=== PATIENT | female | born 1955 | race African-American/Black ===

== ENCOUNTER 2021-07-07 10:15 | Outpatient (CLI) | payer MEDICARE, OTHER | END 2021-07-07 10:16 | disposition home or self-care (01) | LOC: CSHMAMMO 10:15 | PROVIDERS: ATTEND Internal Medicine | DX: Z12.31 Encounter for screening mammogram for malignant neoplasm of breast (principal); Z13.820 Encounter for screening for osteoporosis; Z78.0 Asymptomatic menopausal state; Z80.3 Family history of malignant neoplasm of breast; M85.852 Other specified disorders of bone density and structure, left thigh; M85.851 Other specified disorders of bone density and structure, right thigh | CPT/HCPCS: 77063; 77067; 77080 ==

== ENCOUNTER 2022-03-25 13:44 | Emergency (ER) | payer MEDICARE, OTHER ==
[2022-03-25 14:35] LABS: #Monocytes 0.7 10x3/uL (0.0-1.1); #Neutrophils 3.2 10x3/uL (1.5-8.4); %Basophils 0.6 % (0.0-2.0); %Eosinophils 0.6 % (0.0-6.0); %Monocytes 14.8 % (0.0-10.0); %Neutrophils 63.2 % (40.0-75.0); Mean Corpuscular HGB CONC 33.6 g/dL (32.0-36.0); Mean Corpuscular Hemoglobin 32.6 pg (27.0-33.0); Mean Platelet Volume 11.4 fl (7.4-10.4); Platelet Count 146 10x3/uL (150-450); RBC Distribution Width 12.7 % (11.5-14.5); Red Blood Cell (RBC) Count 3.99 10x6/uL (3.90-5.03)
[2022-03-25 14:50] LABS: ALT (SGPT) 43 U/L (8-55); AST (SGOT) 47 U/L (5-34); Albumin 3.9 g/dL (3.4-4.8); Alkaline Phosphatase 101 U/L (40-110); Anion Gap 12 mmol/L (10-20); BUN (Urea Nitrogen) 25 mg/dL (9.8-20.1); Bilirubin, Total 0.3 mg/dL (0.2-1.2); Calc. Creatinine Clearance 0 mL/min (70-130); Calcium 8.8 mg/dL (7.8-10.44); Carbon Dioxide 25 mmol/L (23-31); Chloride 97 mmol/L (98-107); Estimated GFR 41; Globulin 3.1 g/dL (2.4-3.5); Glucose 111 mg/dL (80-115); Sodium 129 mmol/L (136-145)
== END 2022-03-25 17:40 | disposition home or self-care (01) ==
LOC: CSHERS 13:44
DX: S09.90XA Unspecified injury of head, initial encounter (principal); M25.529 Pain in unspecified elbow; I10 Essential (primary) hypertension; W18.30XA Fall on same level, unspecified, initial encounter
CPT/HCPCS: 70450; 72125; 80053; 85025; 93005; 96360; 96361

== ENCOUNTER 2022-11-24 09:12 | Outpatient (CLI) | payer MEDICARE, OTHER | END 2022-11-24 09:13 | disposition home or self-care (01) | LOC: CSHMAMMO 09:12 | PROVIDERS: ATTEND Internal Medicine | DX: Z12.31 Encounter for screening mammogram for malignant neoplasm of breast (principal); Z80.3 Family history of malignant neoplasm of breast | CPT/HCPCS: 77063; 77067 ==

== ENCOUNTER 2023-04-09 08:52 | Inpatient (IN) | payer MEDICARE, OTHER ==
[2023-04-09 09:43] LABS: #Eosinphils 0.1 10x3/uL (0.0-0.5); #Monocytes 0.6 10x3/uL (0.0-1.1); #Neutrophils 2.2 10x3/uL (1.5-8.4); %Basophils 0.7 % (0.0-2.0); %Eosinophils 2.6 % (0.0-6.0); %Lymphocytes 30.6 % (18.0-47.0); %Monocytes 14.2 % (0.0-10.0); %Neutrophils 51.7 % (40.0-75.0); Hematocrit 34.3 % (34.9-44.5); Hemoglobin 11.7 g/dL (12.0-15.5); Mean Corpuscular HGB CONC 34.1 g/dL (32.0-36.0); Mean Corpuscular Hemoglobin 33.7 pg (27.0-33.0); Mean Corpuscular Volume 98.8 fl (81.6-98.3); Mean Platelet Volume 11.3 fl (7.4-10.4); Platelet Count 195 10x3/uL (150-450); RBC Distribution Width 12.6 % (11.5-14.5); Red Blood Cell (RBC) Count 3.47 10x6/uL (3.90-5.03); White Blood Cell (WBC) Count 4.3 10x3/uL (3.5-10.5)
[2023-04-09 09:54] LABS: INR-International Normal Ratio 1.2; PTT 28.5 sec (22.0-33.0); Prothrombin Time 12.8 sec (9.5-12.1)
[2023-04-09 09:59] LABS: Anion Gap 16 mmol/L (10-20); BUN (Urea Nitrogen) 17 mg/dL (9.8-20.1); Calc. Creatinine Clearance 0 mL/min (70-130); Calcium 8.2 mg/dL (7.8-10.44); Carbon Dioxide 17 mmol/L (23-31); Chloride 104 mmol/L (98-107); Estimated GFR 93; Glucose 76 mg/dL (80-115); Potassium 3.9 mmol/L (3.5-5.1); Sodium 133 mmol/L (136-145)
[2023-04-09 10:06] LABS: Troponin I Less than 0.010 ng/mL (< 0.028)
[2023-04-09] MEDS ORDERED: Ondansetron ODT 4 MG TAB PO PRN (12:34)
[2023-04-09] MEDS ORDERED: Ondansetron PF 4 MG/2 ML Vial IVP PRN (12:34)
[2023-04-09 15:23] LABS: Magnesium 2.1 mg/dL (1.6-2.6)
[2023-04-09 19:18] VITALS: BMI 21.6
[2023-04-09] MEDS: Nicotine 14 MG PATCH TD SCH (21:23)
[2023-04-10] MEDS: Acetaminophen 325 MG TAB PO PRN ×3 (03:23→21:01)
[2023-04-10 04:38] LABS: Amphetamine Not Detected (NotDetected); Barbiturates Screen Not Detected (NotDetected); Benzodiazepine Screen Not Detected (NotDetected); Cocaine Metabolite Screen Not Detected (NotDetected); Methadone Not Detected (NotDetected); Methamphetamine Not Detected (NotDetected); Opiate Screen Not Detected (NotDetected); Oxycodone Screen Not Detected (NotDetected); Phencyclidine (PCP) Not Detected (NotDetected); THC/Cannabinoid Screen Detected (NotDetected); Tricyclic Screen Not Detected (NotDetected)
[2023-04-10 05:34] LABS: #Eosinphils 0.1 10x3/uL (0.0-0.5); #Monocytes 0.7 10x3/uL (0.0-1.1); #Neutrophils 3.7 10x3/uL (1.5-8.4); %Basophils 0.5 % (0.0-2.0); %Eosinophils 1.8 % (0.0-6.0); %Lymphocytes 30.4 % (18.0-47.0); %Monocytes 11.1 % (0.0-10.0); %Neutrophils 55.9 % (40.0-75.0); Hemoglobin 12.5 g/dL (12.0-15.5); Mean Corpuscular HGB CONC 33.8 g/dL (32.0-36.0); Mean Corpuscular Hemoglobin 33.3 pg (27.0-33.0); Mean Corpuscular Volume 98.7 fl (81.6-98.3); Mean Platelet Volume 11.3 fl (7.4-10.4); Platelet Count 208 10x3/uL (150-450); RBC Distribution Width 12.9 % (11.5-14.5); Red Blood Cell (RBC) Count 3.75 10x6/uL (3.90-5.03); White Blood Cell (WBC) Count 6.6 10x3/uL (3.5-10.5)
[2023-04-10 05:51] LABS: Anion Gap 13 mmol/L (10-20); BUN (Urea Nitrogen) 15 mg/dL (9.8-20.1); Calc. Creatinine Clearance 73 mL/min (70-130); Calcium 8.6 mg/dL (7.8-10.44); Carbon Dioxide 23 mmol/L (23-31); Chloride 103 mmol/L (98-107); Estimated GFR 96; Glucose 78 mg/dL (80-115); Potassium 4.4 mmol/L (3.5-5.1); Sodium 135 mmol/L (136-145)
[2023-04-10] MEDS ORDERED: OXYCODONE HCL PO SCH (14:06)
[2023-04-10] MEDS ORDERED: [UNRECOGNIZED DRUG - OTHER] PO SCH (14:06)
[2023-04-10] MEDS ORDERED: ACETAMINOPHEN PO SCH (14:06)
[2023-04-10] MEDS ORDERED: Nicotine 21 MG PATCH TD SCH (14:45)
[2023-04-10] MEDS: oxyCODONE 5 MG TAB PO SCH ×2 (16:17→22:16)
[2023-04-10] MEDS ORDERED: carBAMazepine 200 MG TAB PO SCH (21:00)
[2023-04-10] MEDS: Pregabalin 75 MG CAP PO SCH (21:02)
[2023-04-10] MEDS: Nicotine 14 MG PATCH TD SCH (21:04)
[2023-04-10] MEDS: Acetaminophen 325 MG TAB PO SCH (21:09)
[2023-04-11] MEDS: Acetaminophen 325 MG TAB PO SCH ×3 (00:05→09:46)
[2023-04-11] MEDS: oxyCODONE 5 MG TAB PO SCH ×2 (03:49→09:46)
[2023-04-11 05:37] LABS: Anion Gap 13 mmol/L (10-20); BUN (Urea Nitrogen) 14 mg/dL (9.8-20.1); Calc. Creatinine Clearance 73 mL/min (70-130); Calcium 8.6 mg/dL (7.8-10.44); Carbon Dioxide 26 mmol/L (23-31); Chloride 103 mmol/L (98-107); Estimated GFR 96; Glucose 84 mg/dL (80-115); Potassium 4.1 mmol/L (3.5-5.1); Sodium 138 mmol/L (136-145)
[2023-04-11 05:53] LABS: #Eosinphils 0.2 10x3/uL (0.0-0.5); #Monocytes 0.9 10x3/uL (0.0-1.1); #Neutrophils 3.5 10x3/uL (1.5-8.4); %Basophils 0.3 % (0.0-2.0); %Eosinophils 2.1 % (0.0-6.0); %Lymphocytes 35.1 % (18.0-47.0); %Monocytes 12.1 % (0.0-10.0); %Neutrophils 50.1 % (40.0-75.0); Hematocrit 36.9 % (34.9-44.5); Hemoglobin 12.4 g/dL (12.0-15.5); Mean Corpuscular HGB CONC 33.6 g/dL (32.0-36.0); Mean Corpuscular Hemoglobin 33.1 pg (27.0-33.0); Mean Corpuscular Volume 98.4 fl (81.6-98.3); Mean Platelet Volume 11.3 fl (7.4-10.4); Platelet Count 221 10x3/uL (150-450); RBC Distribution Width 13.1 % (11.5-14.5); Red Blood Cell (RBC) Count 3.75 10x6/uL (3.90-5.03)
[2023-04-11] MEDS ORDERED: carBAMazepine 100 mg Chewable Tablet PO SCH (09:00)
[2023-04-11] MEDS ORDERED: Escitalopram Oxalate 20 mg Tablet PO SCH (09:00)
[2023-04-11] MEDS ORDERED: Raloxifene 60 MG TAB PO SCH (09:00)
[2023-04-11 09:42] VITALS: BP 116/65; TEMP 98.4
[2023-04-11] MEDS: Pregabalin 75 MG CAP PO SCH (09:45)
== END 2023-04-11 13:50 | disposition home or self-care (01) | DRG 315 ==
LOC: CSHERS 08:52 → CSHTELE 17:49
PROVIDERS: ADMIT Internal Medicine; ATTEND Internal Medicine
DX: I95.9 Hypotension, unspecified (principal); I50.32 Chronic diastolic (congestive) heart failure; G89.29 Other chronic pain; M54.9 Dorsalgia, unspecified; Z88.2 Allergy status to sulfonamides; Z66 Do not resuscitate; Z98.890 Other specified postprocedural states; F17.210 Nicotine dependence, cigarettes, uncomplicated; S00.03XA Contusion of scalp, initial encounter; W22.8XXA Striking against or struck by other objects, initial encounter; I11.0 Hypertensive heart disease with heart failure; Z82.49 Family history of ischemic heart disease and other diseases of the circulatory system; I25.118 Atherosclerotic heart disease of native coronary artery with other forms of angina pectoris; E78.2 Mixed hyperlipidemia; I70.213 Atherosclerosis of native arteries of extremities with intermittent claudication, bilateral legs; I70.0 Atherosclerosis of aorta
CPT/HCPCS: 36415; 70450; 72125; 80048; 80306; 83735; 84484; 85025; 85610; 85730; 93005; 93010; 94760; 94762

== ENCOUNTER 2023-04-20 09:32 | Day surgery (SDC) | payer MEDICARE, OTHER ==
[2023-04-18 16:12] VITALS: BMI 22.3
[2023-04-20] MEDS ORDERED: PROPOFOL 40 ML ONE (11:49)
== END 2023-04-20 13:05 | disposition home or self-care (01) ==
LOC: CSHSDC 09:32
PROVIDERS: ATTEND Internal Medicine Gastroenterology
PROC: 0DBN8ZZ Excision of Sigmoid Colon, Via Natural or Artificial Opening Endoscopic (ICD-10-PCS; principal; 2023-04-20)
DX: Z12.11 Encounter for screening for malignant neoplasm of colon (principal); D12.5 Benign neoplasm of sigmoid colon; K64.9 Unspecified hemorrhoids; I25.10 Atherosclerotic heart disease of native coronary artery without angina pectoris; E78.5 Hyperlipidemia, unspecified; F41.8 Other specified anxiety disorders; J44.9 Chronic obstructive pulmonary disease, unspecified; G89.4 Chronic pain syndrome; I10 Essential (primary) hypertension; G45.9 Transient cerebral ischemic attack, unspecified; R73.03 Prediabetes; M19.90 Unspecified osteoarthritis, unspecified site; Z95.5 Presence of coronary angioplasty implant and graft; Z86.010 Personal history of colon polyps; Z88.2 Allergy status to sulfonamides; Z79.899 Other long term (current) drug therapy
CPT/HCPCS: 88305; J2704

== ENCOUNTER 2024-07-30 12:45 | Outpatient (CLI) | payer MEDICARE, OTHER | END 2024-07-30 12:46 | disposition home or self-care (01) | LOC: CSHMAMMO 12:45 | PROVIDERS: ATTEND Internal Medicine | DX: Z12.31 Encounter for screening mammogram for malignant neoplasm of breast (principal); Z78.0 Asymptomatic menopausal state; M85.851 Other specified disorders of bone density and structure, right thigh; M85.852 Other specified disorders of bone density and structure, left thigh; Z80.3 Family history of malignant neoplasm of breast | CPT/HCPCS: 77063; 77067; 77080 ==